=== PATIENT | female | born 1990 | race Two or more races ===

== ENCOUNTER 2020-04-01 15:55 | Observation (INO) | payer MEDICAID ==
[~2020-04-01 15:55] MED LIST: ACET-1079 PO; ACYC-161 PO; CRAN125T PO; PREN-129 OR
== END 2020-04-01 18:25 | disposition home or self-care (01) ==
LOC: LDRP 15:55
PROVIDERS: ADMIT Obstetrics & Gynecology; ATTEND Obstetrics & Gynecology
DX: O99.891 Other specified diseases and conditions complicating pregnancy (principal); M79.89 Other specified soft tissue disorders; O26.893 Other specified pregnancy related conditions, third trimester; R20.0 Anesthesia of skin; Z3A.32 32 weeks gestation of pregnancy
CPT/HCPCS: 59025; 81002; G0378